=== PATIENT | female | born 1965 | race African-American/Black ===

== ENCOUNTER 2019-05-02 13:47 | Outpatient (CLI) | payer OTHER ==
--- NOTE | 2019-05-02 14:55 | ULT ---
US Renal Bilateral STANDARD HISTORY: Hypertension COMPARISON: None. FINDINGS: The right kidney measures 10.5 cm in length and the left kidney measures 10.6 cm in length. No focal mass or hydronephrosis is seen on either side. The urinary bladder is incompletely distended. IMPRESSION: No evidence of high-grade obstruction
== END 2019-05-02 13:48 | disposition home or self-care (01) ==
LOC: BICULT 13:47
PROVIDERS: ATTEND Family Medicine
DX: I10 Essential (primary) hypertension (principal)
CPT/HCPCS: 76770

== ENCOUNTER 2021-03-11 12:51 | Outpatient (CLI) | payer OTHER | END 2021-03-11 12:52 | disposition home or self-care (01) | LOC: BICCT 12:51 | PROVIDERS: ATTEND Family Medicine | DX: R91.8 Other nonspecific abnormal finding of lung field (principal); E66.01 Morbid (severe) obesity due to excess calories; Z87.09 Personal history of other diseases of the respiratory system | CPT/HCPCS: 71250 ==

== ENCOUNTER 2021-08-05 13:22 | Outpatient (CLI) | payer OTHER | END 2021-08-05 13:23 | disposition home or self-care (01) | LOC: EEVIPCON 13:22 → ULT 13:22 | PROVIDERS: ATTEND Nurse Practitioner Family | DX: H53.129 Transient visual loss, unspecified eye (principal) | CPT/HCPCS: 93880 ==

== ENCOUNTER 2022-11-27 13:11 | Outpatient (CLI) | payer OTHER ==
[~2022-11-27 13:11] MED LIST: Iopamidol 370 76% 100 ML VIAL ONE
== END 2022-11-27 13:12 | disposition home or self-care (01) ==
LOC: SJX 13:11
PROVIDERS: ATTEND Family Medicine
DX: R59.0 Localized enlarged lymph nodes (principal); E07.9 Disorder of thyroid, unspecified
CPT/HCPCS: 70492; Q9967

== ENCOUNTER 2023-02-23 08:38 | Outpatient (CLI) | payer OTHER | END 2023-02-23 08:39 | disposition home or self-care (01) | LOC: NM 08:38 | PROVIDERS: ATTEND Specialist | DX: E21.3 Hyperparathyroidism, unspecified (principal); E04.2 Nontoxic multinodular goiter | CPT/HCPCS: 78072; A9500 ==

== ENCOUNTER 2023-05-03 13:07 | Outpatient (CLI) | payer OTHER | END 2023-05-03 13:08 | disposition home or self-care (01) | LOC: BICMRI 13:07 | PROVIDERS: ATTEND Family Medicine | DX: M23.92 Unspecified internal derangement of left knee (principal); M23.91 Unspecified internal derangement of right knee; S83.281A Other tear of lateral meniscus, current injury, right knee, initial encounter; S83.241A Other tear of medial meniscus, current injury, right knee, initial encounter; M17.0 Bilateral primary osteoarthritis of knee; S83.282A Other tear of lateral meniscus, current injury, left knee, initial encounter; S83.242A Other tear of medial meniscus, current injury, left knee, initial encounter; E04.1 Nontoxic single thyroid nodule | CPT/HCPCS: 76536 ==